=== PATIENT | male | born 1970 | race African-American/Black ===

== ENCOUNTER 2017-12-07 02:31 | Inpatient (IN) | payer MEDICARE, OTHER ==
[2017-12-07] VITALS (11 sets, daily range): BP systolic 124–152; BP diastolic 54–106
[~2017-12-07] VITALS: Ht 177.8 cm; Wt 68.0 kg
--- NOTE | 2017-12-07 02:51 | Emergency Room Report ---
History of Present Illness General Chief Complaint: Behavioral Complaint Source: Patient, EMS Present Illness HPI This is a 47-year-old male with history of schizophrenia. He also has history of methamphetamine abuse. He is currently at a transitional home for recovery. He said he walked barefoot home and was in front of the transitional home when he started yelling and cursing. 911 was called. He was struggling fighting with police and was placed on restraints and EMS brought him here. Patient not cooperative with history. He denies any drug use. No suicidal thoughts or homicidal thought. Complaining of foot pain and blistering. Denies any alcohol drugs. Allergies: Coded Allergies: No Known Allergies (Unverified , 12/07/17) Patient History Past Medical History: see triage record, old chart reviewed, schizophrenia Past Surgical History: other Family History: none Social History: tobacco use, drug use Immunizations: other Reviewed Nursing Documentation: PMH: Agreed; PSxH: Agreed Nursing Documentation-PMH Past Medical History: No History, Except For History Of Psychiatric Problem: Yes - schizophrenia Review of Systems ENT: Denies: sore throat Cardiovascular: Denies: chest pain, palpitations Gastrointestinal/Abdominal: Denies: nausea, vomiting, diarrhea Musculoskeletal: Denies: back problems Skin: Denies: rash Neurological: Denies: OMALLEY, seizures All Other Systems: negative except mentioned in HPI Physical Exam Vital Signs Date Time Temp Pulse Resp B/P (MAP) Pulse Ox O2 Delivery O2 Flow Rate FiO2 12/07/17 02:33 130 18 142/87 100 Room Air vitals with tachycardia Sp02 EP Interpretation: reviewed, normal General Appearance: alert/responsive, no apparent distress, non-toxic, other - agitated, screaming Head: normocephalic, atraumatic Eyes: PERRL, EOMI ENT: oropharynx normal Neck: supple/symm/no masses Respiratory: effort normal, no rhonchi, no wheezing Cardiovascular: no murmur, gallop, rub Gastrointestinal: non-tender, no mass, non-distended, no rebound/guarding, normal bowel sounds Musculoskeletal: other - blister to right foot Neurologic: oriented x3, sensory intact, motor strength/tone normal Psychiatric: no suicidal/homicidal ideation Skin: no rash, normal palpation Medical Decision Making Diagnostic Impression: Primary Impression: Psychosis Qualified Codes: F20.9 - Schizophrenia, unspecified ER Course Patient present with acute psychosis and agitation. He came in under restraints of handcuffs. Once he received Haldol and Ativan, he is calmed and answering questions appropriately. He did not require 4 point restraints here. Patient is medically clear for psychiatric evaluation. Patient was placed on a 5150 by police because of his psychosis and agitation. Lab Results Impression labs unremarkable Last Vital Signs Date Time Temp Pulse Resp B/P (MAP) Pulse Ox O2 Delivery O2 Flow Rate FiO2 12/07/17 02:33 130 18 142/87 100 Room Air Status: improved Disposition: XFER TO PSYCH HOSP/UNIT Condition: Stable MARLON ZULUAGA M.D. Dec 07, 2017 02:51
[2017-12-07] MEDS ORDERED: LORazepam Inj 2mg/ml 1ml ONE (02:58)
[2017-12-07] MEDS ORDERED: LORazepam Inj 2mg/ml 1ml IM ONE (03:00)
[2017-12-07] MEDS ORDERED: Haloperidol 5mg/ml Inj IM ONE (03:00)
[2017-12-07 03:41] LABS: APPEARANCE,URINE CLEAR; BASOPHILS % (AUTO) 2.5 % (0.0-2.0); BILIRUBIN, URINE NEGATIVE (NEGATIVE); EOSINOPHILS % (AUTO) 0.2 % (0.0-3.0); GLUCOSE, URINE (UA) NEGATIVE (NEGATIVE); HEMOGLOBIN 13.2 G/DL (14.2-18.0); KETONES,URINE 2+ (NEGATIVE); LEUKOCYTE ESTERASE ,URINE 1+ (NEGATIVE); MEAN CORPUSCULAR VOLUME 96 FL (80-99); MONOCYTES % (AUTO) 6.7 % (1.0-10.0); NEUTROPHILS % (AUTO) 80.6 % (45.0-75.0); NITRITE,URINE NEGATIVE (NEGATIVE); PH,URINE 6 (4.5-8.0); PLATELET COUNT 173 K/UL (150-450); PROTEIN,URINE 2+ (NEGATIVE); RED BLOOD COUNT 3.95 M/UL (4.70-6.10); RED CELL DISTRIBUTION WIDTH 10.7 % (11.6-14.8); UROBILINOGEN,URINE 1 MG/DL (0.0-1.0)
[2017-12-07 03:43] LABS: COLOR,URINE YELLOW
[2017-12-07 03:48] LABS: ANION GAP 12 mmol/L (5-15); BLOOD UREA NITROGEN 28 mg/dL (7-18); CALCIUM 9.7 MG/DL (8.5-10.1); CARBON DIOXIDE 25 MMOL/L (21-32); CHLORIDE 104 MMOL/L (98-107); CREATININE 1.4 MG/DL (0.55-1.30); SODIUM 141 MMOL/L (136-145)
[2017-12-07 03:52] LABS: ALANINE AMINOTRANSFERASE 108 U/L (12-78); ALBUMIN 4.4 G/DL (3.4-5.0); ALBUMIN/GLOBULIN RATIO 1.3 (1.0-2.7); ALKALINE PHOSPHATASE 49 U/L (46-116); ASPARTATE AMINO TRANSFERASE 304 U/L (15-37); BILIRUBIN,TOTAL 0.8 MG/DL (0.2-1.0)
[2017-12-07 07:18] LABS: CREATINE KINASE 6314 U/L (26-308)
[2017-12-07 10:11] LABS: APPEARANCE,URINE CLEAR; BILIRUBIN, URINE NEGATIVE (NEGATIVE); GLUCOSE, URINE (UA) NEGATIVE (NEGATIVE); KETONES,URINE 3+ (NEGATIVE); LEUKOCYTE ESTERASE ,URINE 1+ (NEGATIVE); NITRITE,URINE NEGATIVE (NEGATIVE); PH,URINE 7 (4.5-8.0); PROTEIN,URINE 1+ (NEGATIVE); UROBILINOGEN,URINE NORMAL MG/DL (0.0-1.0)
[2017-12-07 10:12] LABS: COLOR,URINE YELLOW
[2017-12-07 12:11] LABS: CREATINE KINASE 4705 U/L (26-308)
[2017-12-07 23:03] LABS: ANION GAP 9 mmol/L (5-15); BLOOD UREA NITROGEN 18 mg/dL (7-18); CALCIUM 8.9 MG/DL (8.5-10.1); CARBON DIOXIDE 25 MMOL/L (21-32); CHLORIDE 107 MMOL/L (98-107); POTASSIUM 3.8 MMOL/L (3.5-5.1); SODIUM 141 MMOL/L (136-145)
[2017-12-07 23:17] LABS: ALANINE AMINOTRANSFERASE 100 U/L (12-78); ALBUMIN 3.8 G/DL (3.4-5.0); ALBUMIN/GLOBULIN RATIO 1.1 (1.0-2.7); ALKALINE PHOSPHATASE 49 U/L (46-116); ASPARTATE AMINO TRANSFERASE 250 U/L (15-37); BILIRUBIN,TOTAL 0.4 MG/DL (0.2-1.0); CREATINE KINASE 4546 U/L (26-308)
--- NOTE | 2017-12-08 00:32 | Emergency Room Report ---
Physical Exam Vital Signs Date Time Temp Pulse Resp B/P (MAP) Pulse Ox O2 Delivery O2 Flow Rate FiO2 12/07/17 02:33 130 18 142/87 100 Room Air 12/07/17 04:38 98.9 98.9 Medical Decision Making Diagnostic Impression: Primary Impression: Psychosis Qualified Codes: F20.9 - Schizophrenia, unspecified Additional Impressions: Rhabdomyolysis Qualified Codes: M62.82 - Rhabdomyolysis DONNA (acute kidney injury) ER Course Hospital Course 47 yo M presents to ED for evaluation. placed on 5150 hold after aggressive behavior at housing facility Clinical course Patient initially seen and evaluated by Dr Darby. Please see his note for full history and physical Labs reviewed-electrolytes okay, no leukocytosis, hemoglobin/hematocrit stable, CK > 6000, Utox + THC Patient placed on 5150 hold for aggressive behavior towards others. Displaying no signs of SI or HI or aggressive behavior here. Despite aggressive IV hydration CK levels remain elevated. Patient cannot be medically cleared for psychiatric placement. Patient will be admitted for continued IV hydration and psychiatric evaluation here case discussed with Dr. Weller and he agreed to accept the patient to his service for further care and support i. I feel this is a highly complex case requiring extensive working including EKG/Rhythm strip, Xray/CT/US, Blood/urine lab work, repeat exams while in ED, and administration of strong opiates/narcotics for pain control, admission to hospital or close patient follow up. Diagnosis - rhabdomyolysis, psychosis, DONNA Admitted to floor in serious condition Labs Test 12/07/17 03:25 12/07/17 09:42 12/07/17 11:35 12/07/17 22:30 White Blood Count 8.0 K/UL (4.8-10.8) Red Blood Count 3.95 M/UL (4.70-6.10) Hemoglobin 13.2 G/DL (14.2-18.0) Hematocrit 38.0 % (42.0-52.0) Mean Corpuscular Volume 96 FL (80-99) Mean Corpuscular Hemoglobin 33.4 PG (27.0-31.0) Mean Corpuscular Hemoglobin Concent 34.7 G/DL (32.0-36.0) Red Cell Distribution Width 10.7 % (11.6-14.8) Platelet Count 173 K/UL (150-450) Mean Platelet Volume 7.9 FL (6.5-10.1) Neutrophils (%) (Auto) 80.6 % (45.0-75.0) Lymphocytes (%) (Auto) 10.0 % (20.0-45.0) Monocytes (%) (Auto) 6.7 % (1.0-10.0) Eosinophils (%) (Auto) 0.2 % (0.0-3.0) Basophils (%) (Auto) 2.5 % (0.0-2.0) Urine Color Yellow Yellow Urine Appearance Clear Clear Urine pH 6 (4.5-8.0) 7 (4.5-8.0) Urine Specific [place] 1.020 (1.005-1.035) 1.010 (1.005-1.035) Urine Protein 2+ (NEGATIVE) 1+ (NEGATIVE) Urine Glucose (UA) Negative (NEGATIVE) Negative (NEGATIVE) Urine Ketones 2+ (NEGATIVE) 3+ (NEGATIVE) Urine Blood 2+ (NEGATIVE) 1+ (NEGATIVE) Urine Nitrite Negative (NEGATIVE) Negative (NEGATIVE) Urine Bilirubin Negative (NEGATIVE) Negative (NEGATIVE) Urine Urobilinogen 1 MG/DL (0.0-1.0) Normal MG/DL (0.0-1.0) Urine Leukocyte Esterase 1+ (NEGATIVE) 1+ (NEGATIVE) Urine RBC 2-4 /HPF (0 - 0) 0-2 /HPF (0 - 0) Urine WBC 0-2 /HPF (0 - 0) 0-2 /HPF (0 - 0) Urine Squamous Epithelial Cells Occasional /LPF None /LPF (NONE/OCC) Urine Bacteria Occasional /HPF (NONE) Occasional /HPF (NONE) Sodium Level 141 MMOL/L (136-145) 141 MMOL/L (136-145) Potassium Level 4.0 MMOL/L (3.5-5.1) 3.8 MMOL/L (3.5-5.1) Chloride Level 104 MMOL/L (98-107) 107 MMOL/L (98-107) Carbon Dioxide Level 25 MMOL/L (21-32) 25 MMOL/L (21-32) Anion Gap 12 mmol/L (5-15) 9 mmol/L (5-15) Blood Urea Nitrogen 28 mg/dL (7-18) 18 mg/dL (7-18) Creatinine 1.4 MG/DL (0.55-1.30) 1.0 MG/DL (0.55-1.30) Estimat Glomerular Filtration Rate > 60 mL/min (>60) > 60 mL/min (>60) Glucose Level 114 MG/DL (74-106) 96 MG/DL (74-106) Calcium Level 9.7 MG/DL (8.5-10.1) 8.9 MG/DL (8.5-10.1) Total Bilirubin 0.8 MG/DL (0.2-1.0) 0.4 MG/DL (0.2-1.0) Aspartate Amino Transf (AST/SGOT) 304 U/L (15-37) 250 U/L (15-37) Alanine Aminotransferase (ALT/SGPT) 108 U/L (12-78) 100 U/L (12-78) Alkaline Phosphatase 49 U/L (46-116) 49 U/L (46-116) Total Creatine Kinase 6314 U/L (26-308) 4705 U/L (26-308) 4546 U/L (26-308) Total Protein 7.9 G/DL (6.4-8.2) 7.4 G/DL (6.4-8.2) Albumin 4.4 G/DL (3.4-5.0) 3.8 G/DL (3.4-5.0) Globulin 3.5 g/dL 3.6 g/dL Albumin/Globulin Ratio 1.3 (1.0-2.7) 1.1 (1.0-2.7) Salicylates Level 1.5 ug/mL (2.8-20) Urine Opiates Screen Negative (NEGATIVE) Acetaminophen Level < 2 MCG/ML (10-30) Urine Barbiturates Screen Negative (NEGATIVE) Phencyclidine (PCP) Screen Negative (NEGATIVE) Urine Amphetamines Screen Negative (NEGATIVE) Urine Benzodiazepines Screen Negative (NEGATIVE) Urine Cocaine Screen Negative (NEGATIVE) Urine Marijuana (THC) Screen Positive (NEGATIVE) Serum Alcohol < 3 mg/dL Last Vital Signs Date Time Temp Pulse Resp B/P (MAP) Pulse Ox O2 Delivery O2 Flow Rate FiO2 12/07/17 19:29 98.4 89 18 127/81 100 Room Air 98.4 Status: improved Disposition: ADMITTED INPATIENT Condition: Serious Referrals: NOT CHOSEN IPA/MD,REFERRING (PCP) Kayden Bee MD Dec 08, 2017 00:32
[2017-12-08] MEDS ORDERED: LORazepam Inj 2mg/ml 1ml IV ONE (00:45)
[2017-12-08] MEDS ORDERED: Haloperidol 5mg/ml Inj IM ONE (00:45)
[2017-12-08 01:30] VITALS: BP 129/74
[2017-12-08 02:30] VITALS: BP 132/78
[2017-12-08] MEDS ORDERED: OLANZAPINE5 MG ORAL (03:54)
[2017-12-08] MEDS ORDERED: LITHIUM CARBON300 M3 PO (03:54)
[2017-12-08] MEDS ORDERED: BENZTROPINE ME0.5 MG PO (03:54)
[2017-12-08 06:21] LABS: BASOPHILS % (AUTO) 1.3 % (0.0-2.0); EOSINOPHILS % (AUTO) 2.7 % (0.0-3.0); HEMATOCRIT 32.6 % (42.0-52.0); HEMOGLOBIN 11.4 G/DL (14.2-18.0); MEAN CORPUSCULAR VOLUME 99 FL (80-99); NEUTROPHILS % (AUTO) 55.9 % (45.0-75.0); PLATELET COUNT 143 K/UL (150-450); RED BLOOD COUNT 3.31 M/UL (4.70-6.10); RED CELL DISTRIBUTION WIDTH 11.2 % (11.6-14.8); WHITE BLOOD COUNT 5.6 K/UL (4.8-10.8)
[2017-12-08 07:05] LABS: ALANINE AMINOTRANSFERASE 85 U/L (12-78); ALBUMIN 3.2 G/DL (3.4-5.0); ALBUMIN/GLOBULIN RATIO 1.1 (1.0-2.7); ALKALINE PHOSPHATASE 39 U/L (46-116); ANION GAP 7 mmol/L (5-15); ASPARTATE AMINO TRANSFERASE 194 U/L (15-37); BILIRUBIN,TOTAL 0.5 MG/DL (0.2-1.0); BLOOD UREA NITROGEN 11 mg/dL (7-18); CALCIUM 8.4 MG/DL (8.5-10.1); CARBON DIOXIDE 25 MMOL/L (21-32); CHLORIDE 109 MMOL/L (98-107); CREATINE KINASE 3025 U/L (26-308); CREATININE 0.8 MG/DL (0.55-1.30); POTASSIUM 3.8 MMOL/L (3.5-5.1); SODIUM 141 MMOL/L (136-145)
[2017-12-08 08:00] VITALS: BP 128/88
[2017-12-08] MEDS: Heparin 5000 units/ml inj SUBQ SCH ×4 (08:27→21:46)
[2017-12-08] MEDS ORDERED: Haloperidol 5mg/ml Inj IM PRN (09:00)
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
[2017-12-08] MEDS: Sodium Bicarbonate 50 ML in 1/2 NS 1000ml 1,000 ML IV SCH (10:23)
[2017-12-08 12:00] VITALS: BP 134/86
[2017-12-08 16:00] VITALS: BP 138/88
[2017-12-08 20:00] VITALS: BP 123/80
[2017-12-08] MEDS ORDERED: Benztropine 1mg tab ORAL SCH (21:00)
[2017-12-09 00:15] VITALS: BP 131/78
[2017-12-09 04:00] VITALS: BP 148/90
[2017-12-09 07:33] LABS: ALANINE AMINOTRANSFERASE 97 U/L (12-78); ALBUMIN/GLOBULIN RATIO 1.1 (1.0-2.7); ALKALINE PHOSPHATASE 43 U/L (46-116); ANION GAP 6 mmol/L (5-15); ASPARTATE AMINO TRANSFERASE 152 U/L (15-37); BILIRUBIN,TOTAL 0.7 MG/DL (0.2-1.0); BLOOD UREA NITROGEN 10 mg/dL (7-18); CALCIUM 10.3 MG/DL (8.5-10.1); CARBON DIOXIDE 28 MMOL/L (21-32); CHLORIDE 105 MMOL/L (98-107); CREATINE KINASE 1906 U/L (26-308); CREATININE 0.9 MG/DL (0.55-1.30); POTASSIUM 3.8 MMOL/L (3.5-5.1); SODIUM 139 MMOL/L (136-145)
[2017-12-09 08:00] VITALS: BP 153/82
[2017-12-09] MEDS: Heparin 5000 units/ml inj SUBQ SCH (08:42)
[2017-12-09 12:00] VITALS: BP 148/99
--- NOTE | 2017-12-09 12:25 | Consultation ---
History of Present Illness General Date patient seen: Dec 08, 2017 Chief Complaint: Behavioral Complaint Present Illness Allergies: Coded Allergies: No Known Allergies (Unverified , 12/07/17) Medication History Scheduled Benztropine Mesylate* (Cogentin*), 0.5 MG PO BEDTIME, (Reported) Olanzapine (Olanzapine), 5 MG ORAL BEDTIME, (Reported) Miscellaneous Medications [place] Carbonate ([place] Carbonate), 300 MG PO, (Reported) Patient History Healthcare decision maker Resuscitation status Advanced Directive on File No Physical Exam Last 24 Hour Vital Signs Date Time Temp Pulse Resp B/P (MAP) Pulse Ox O2 Delivery O2 Flow Rate FiO2 12/09/17 08:00 97.7 110 21 153/82 (105) 100 97.7 12/09/17 07:40 Room Air 12/09/17 04:00 98.1 98 20 148/90 (109) 100 98.1 12/09/17 00:15 97.9 89 20 131/78 (95) 99 97.9 12/08/17 21:00 Room Air 12/08/17 20:00 97.3 88 18 123/80 (94) 100 97.3 12/08/17 16:00 97.8 90 20 138/88 (105) 100 97.8 Intake and Output 12/08/17 12/09/17 19:00 07:00 Intake Total 1080 ml Balance 1080 ml Intake Oral 1080 ml # Voids 6 # Bowel Movements 2 Laboratory Tests Test 12/09/17 04:00 Sodium Level 139 MMOL/L (136-145) Potassium Level 3.8 MMOL/L (3.5-5.1) Chloride Level 105 MMOL/L (98-107) Carbon Dioxide Level 28 MMOL/L (21-32) Anion Gap 6 mmol/L (5-15) Blood Urea Nitrogen 10 mg/dL (7-18) Creatinine 0.9 MG/DL (0.55-1.30) Estimat Glomerular Filtration Rate > 60 mL/min (>60) Glucose Level 96 MG/DL (74-106) Calcium Level 10.3 MG/DL (8.5-10.1) #H Total Bilirubin 0.7 MG/DL (0.2-1.0) Aspartate Amino Transf (AST/SGOT) 152 U/L (15-37) H Alanine Aminotransferase (ALT/SGPT) 97 U/L (12-78) H Alkaline Phosphatase 43 U/L (46-116) L Total Creatine Kinase 1906 U/L (26-308) H Total Protein 7.7 G/DL (6.4-8.2) Albumin 4.0 G/DL (3.4-5.0) Globulin 3.7 g/dL Albumin/Globulin Ratio 1.1 (1.0-2.7) Height (Feet): 5 Height (Inches): 10.00 Weight (Pounds): 150 Medications Current Medications Medications (Trade) Dose Ordered Sig/Tanner Route PRN Reason Start Time Stop Time Status Last Admin Dose Admin Benztropine Mesylate (Cogentin) 1 mg QHS ORAL 12/08/17 21:00 01/07/18 20:59 12/08/17 21:45 Haloperidol Lactate (Haldol) 5 mg Q6H PRN IM Agitation 12/08/17 09:00 01/07/18 08:59 Heparin Sodium (Porcine) (Heparin 5000 units/ml) 5,000 units EVERY 12 HOURS SUBQ 12/08/17 21:00 01/07/18 08:59 12/09/17 08:42 Olanzapine (ZyPREXA) 5 mg BID ORAL 12/08/17 09:00 01/07/18 08:59 12/09/17 08:38 Sodium Bicarbonate 50 ml/ Sodium Chloride 1,050 ml @ 75 mls/hr Q14H IV 12/08/17 10:00 01/07/18 09:59 12/08/17 10:23 Anshul Stevens MD Dec 09, 2017 12:25
[2017-12-09] MEDS ORDERED: LORazepam 1mg tab ORAL PRN (12:30)
--- NOTE | 2017-12-09 12:34 | Consultation ---
History of Present Illness General Chief Complaint: Behavioral Complaint Present Illness HPI 47-year-old male. He has a history of psychosis, was transferred from his care center after he became agitated and combative. the pt has been calm has paranoid ideation but no si/hi Allergies: Coded Allergies: No Known Allergies (Unverified , 12/07/17) Medication History Scheduled Benztropine Mesylate* (Cogentin*), 0.5 MG PO BEDTIME, (Reported) Olanzapine (Olanzapine), 5 MG ORAL BEDTIME, (Reported) Miscellaneous Medications [place] Carbonate ([place] Carbonate), 300 MG PO, (Reported) Patient History History Provided By: Patient, Medical Record, PMD Healthcare decision maker Resuscitation status Advanced Directive on File No Review of Systems Psychiatric: Reports: anxiety, depressed feelings, emotional problems, hallucinations Physical Exam General Appearance: no apparent distress, alert Neurologic: oriented x 3, responsive, depressed affect Last 24 Hour Vital Signs Date Time Temp Pulse Resp B/P (MAP) Pulse Ox O2 Delivery O2 Flow Rate FiO2 12/09/17 08:00 97.7 110 21 153/82 (105) 100 97.7 12/09/17 07:40 Room Air 12/09/17 04:00 98.1 98 20 148/90 (109) 100 98.1 12/09/17 00:15 97.9 89 20 131/78 (95) 99 97.9 12/08/17 21:00 Room Air 12/08/17 20:00 97.3 88 18 123/80 (94) 100 97.3 12/08/17 16:00 97.8 90 20 138/88 (105) 100 97.8 Intake and Output 12/08/17 12/09/17 19:00 07:00 Intake Total 1080 ml Balance 1080 ml Intake Oral 1080 ml # Voids 6 # Bowel Movements 2 Laboratory Tests Test 12/09/17 04:00 Sodium Level 139 MMOL/L (136-145) Potassium Level 3.8 MMOL/L (3.5-5.1) Chloride Level 105 MMOL/L (98-107) Carbon Dioxide Level 28 MMOL/L (21-32) Anion Gap 6 mmol/L (5-15) Blood Urea Nitrogen 10 mg/dL (7-18) Creatinine 0.9 MG/DL (0.55-1.30) Estimat Glomerular Filtration Rate > 60 mL/min (>60) Glucose Level 96 MG/DL (74-106) Calcium Level 10.3 MG/DL (8.5-10.1) #H Total Bilirubin 0.7 MG/DL (0.2-1.0) Aspartate Amino Transf (AST/SGOT) 152 U/L (15-37) H Alanine Aminotransferase (ALT/SGPT) 97 U/L (12-78) H Alkaline Phosphatase 43 U/L (46-116) L Total Creatine Kinase 1906 U/L (26-308) H Total Protein 7.7 G/DL (6.4-8.2) Albumin 4.0 G/DL (3.4-5.0) Globulin 3.7 g/dL Albumin/Globulin Ratio 1.1 (1.0-2.7) Height (Feet): 5 Height (Inches): 10.00 Weight (Pounds): 150 Medications Current Medications Medications (Trade) Dose Ordered Sig/Tanenr Route PRN Reason Start Time Stop Time Status Last Admin Dose Admin Benztropine Mesylate (Cogentin) 1 mg QHS ORAL 12/08/17 21:00 01/07/18 20:59 12/08/17 21:45 Heparin Sodium (Porcine) (Heparin 5000 units/ml) 5,000 units EVERY 12 HOURS SUBQ 12/08/17 21:00 01/07/18 08:59 12/09/17 08:42 Lorazepam (Ativan) 2 mg Q6H PRN ORAL For Anxiety 12/09/17 12:30 12/16/17 12:29 Olanzapine (ZyPREXA) 10 mg BEDTIME ORAL 12/09/17 21:00 01/08/18 20:59 Sodium Bicarbonate 50 ml/ Sodium Chloride 1,050 ml @ 75 mls/hr Q14H IV 12/08/17 10:00 01/07/18 09:59 12/08/17 10:23 Assessment/Plan Assessment/Plan schizophrenia the pt was not at imminent dts dto will be dc with Anshul Acevedo MD Dec 09, 2017 12:34
[2017-12-09] MEDS: Sodium Bicarbonate 50 ML in 1/2 NS 1000ml 1,000 ML IV SCH ×3 (13:20)
[2017-12-09] MEDS ORDERED: OLANZapine 10mg tab ORAL SCH (21:00)
--- NOTE | 2017-12-11 10:29 | Discharge Summary ---
Discharge Summary Discharge Summary _ DATE OF ADMISSION: 12/07/2017 DATE OF DISCHARGE: 12/09/2017 REASON FOR ADMISSION: 47 years old male with history of schizophrenia, amphetamine abuse, psychosis , was transferred to emergency department for agitation and combativeness. Police was called, and patient was brought to emergency department for further evaluation. Upon evaluation patient noted to have evidence of renal failure with BUN 28 and creatinine 1.4. CK 6314. AST 304. ALT 108. Urinalysis revealed no evidence of UTI. No leukocytosis ,stable hemoglobin and hematocrit , Urine toxicology screen was positive for marijuana. Patient started on the IV hydration and admitted for further management with diagnoses of rhabdomyolysis ,acute renal failure ,elevated liver enzymes, psychosis. CONSULTANTS: psychiatrist [facility] COURSE: Patient admitted to medical surgical floor. Patient started on aggressive IV hydration with sodium bicarbonate. Renal parameters , electrolytes and LFT were closely monitored. With IV hydration acute renal failure resolved. Prior to discharge, BUN 10 , creatinine 0.9. CK down to 1906. AST down to 152, ALT down to 97. Patient counseled on abstinence from street drugs. Psychiatrist seen and evaluated patient and optimized psychiatric medication regimen. Per psychiatrist, patient was not at imminent danger to self or others. Patient met with the social media content manager. After assessing family situation,it was found most of his family lives in [place] and family support was limited. Patient indicated to be familiar with homeless shelters and different programs. Patient was i encouraged to check with his Release Manager in order to avoid warrant issued. FINAL DIAGNOSES: Rhabdomyolysis Acute renal failure Psychosis Schizophrenia Elevated LFT DISCHARGE MEDICATIONS: See Medication Reconciliation list. DISCHARGE INSTRUCTIONS: Patient was discharged. Patient was encouraged to follow-up with Release Manager. Patient was familiar with the homeless shelters and different programs. Patient reported that he did not require any resources. I have been assigned to dictate discharge summary for this account. I was not involved in the patient's management. Makenna Macdonald NP Dec 11, 2017 10:29
== END 2017-12-09 14:05 | disposition home or self-care (01) | DRG 558 ==
LOC: EDBD 02:31 → EMR 02:46 → 4E 23:35 → EDBEDREQ 12-08 01:03
DX: M62.82 Rhabdomyolysis (principal); N17.9 Acute kidney failure, unspecified; F20.9 Schizophrenia, unspecified; F17.200 Nicotine dependence, unspecified, uncomplicated; F15.10 Other stimulant abuse, uncomplicated; R79.89 Other specified abnormal findings of blood chemistry
CPT/HCPCS: 36415; 80053; 80307; 80329; 81003; 82550; 84443; 85025